=== PATIENT | female | born 1970 | race Caucasian/White ===

== ENCOUNTER → 2016-10-28 | Outpatient (CLI) | payer BC, MEDICARE ==
[~2016-10-28] MED LIST: ACET-76 PO; ADAL40KI INJ; AMIT50TA PO; CEFD300C37 PO; CHOL5000 PO; CITA40TA5 PO; FOLI0.8T2 PO; GABA100C PO; GABA300C10 PO; HYDR25TA11 PO; LINA145C PO; MELA1TAB15 PO; METH25VI9 INJ; OMEP40CA6 PO; PHEN37.53 PO; PRED10TA PO; TEMA30CA PO; TRAM200T17 PO; TRAM50TA2 PO
== END ==
LOC: STAR 13:09
PROVIDERS: ATTEND Thoracic Surgery (Cardiothoracic Vascular Surgery)
DX: Z02.9 Encounter for administrative examinations, unspecified (principal)

== ENCOUNTER 2016-11-04 05:56 | Observation (INO) | payer BC, MEDICARE ==
[~2016-11-04] VITALS: Ht 154.9 cm; Wt 93.3 kg
[2016-11-04] MEDS ORDERED: LACTATED RINGERS 1,000 ML IV SCH ×2 (06:29→10:21)
[2016-11-04 06:30] VITALS: BP 116/77
[2016-11-04] MEDS ORDERED: BUPIVACAINE/PF-EPI 0.5% 1:200K ONE (07:27)
[2016-11-04] MEDS ORDERED: FENTANYL PF 500 MCG/10ML ONE (09:12)
[2016-11-04] MEDS ORDERED: HYDROCORTISONE 100 MG INJ. ONE (09:18)
[2016-11-04] MEDS ORDERED: FENTANYL PF 100 MCG/2ML IV PRN (10:00)
[2016-11-04] MEDS ORDERED: PROMETHAZINE 25 MG/ML, 1ML IV PRN (10:00)
[2016-11-04] MEDS ORDERED: OXYcodone 5 MG/5 ML ORAL.SOL UDC PO PRN ×2 (10:00→10:30)
[2016-11-04] MEDS ORDERED: ONDANSETRON 2MG/ML, 2ML IVPush PRN ×2 (10:00→10:30)
[2016-11-04] MEDS ORDERED: MIDAZOLAM 1 MG/ML, 2ML IV PRN (10:00)
[2016-11-04] MEDS ORDERED: HYDROmorphone 1 MG/ML, 1ML IV PRN (10:00)
[2016-11-04] MEDS ORDERED: LABETALOL 5MG/ML, 20ML IV PRN (10:00)
[2016-11-04] MEDS ORDERED: MEPERIDINE/PF 25MG/0.5ML IVPush PRN (10:00)
[2016-11-04] MEDS ORDERED: KETOROLAC 30 MG/1 ML IV PRN (10:30)
[2016-11-04] MEDS ORDERED: DIPHENHYDRAMINE 50 MG/ML, 1ML IV PRN (10:30)
[2016-11-04] MEDS ORDERED: LORazepam 2 MG/ML, 1ML IV PRN (10:30)
[2016-11-04] MEDS ORDERED: FAMOTIDINE 20 MG/2 ML IV SCH ×2 (10:30→22:30)
[2016-11-04] MEDS ORDERED: CEFAZOLIN PMX 2GM/50ML 50 ML IVPB SCH (10:30)
[2016-11-04] MEDS ORDERED: hydrALAzine 20 MG/ML, 1ML IV PRN (10:30)
[2016-11-04] MEDS ORDERED: PROMETHAZINE 25 MG/ML, 1ML IM PRN (10:30)
[2016-11-04] MEDS ORDERED: morphine SULFATE 10 MG/ML, 1ML IV PRN (10:30)
[2016-11-04] MEDS ORDERED: ENALAPRILAT 1.25 MG/ML, 2ML IV PRN (10:30)
[2016-11-04] MEDS ORDERED: PROMETHAZINE 12.5 MG SUPP PR PRN (10:30)
[2016-11-04] MEDS ORDERED: OXYcodone 5 MG/5 ML ORAL.SOL UDC ONE (10:39)
[2016-11-04] MEDS ORDERED: GABAPENTIN 100 MG CAPSULE PO SCH (11:00)
[2016-11-04] MEDS ORDERED: METOCLOPRAMIDE 5 MG/ML, 2ML ONE (15:45)
[2016-11-04] MEDS ORDERED: NEOSTIGMINE 1 MG/ML, 10ML ONE (15:45)
[2016-11-04] MEDS ORDERED: ROCURONIUM 10 MG/ML ONE (15:45)
[2016-11-04] MEDS ORDERED: DEXAMETHASONE 4 MG/ML, 1ML ONE (15:45)
[2016-11-04] MEDS ORDERED: SUCCINYLCHOLINE 20 MG/ML, 10ML ONE (15:45)
[2016-11-04] MEDS ORDERED: PROPOFOL 10 MG/ML, 20ML ONE (15:45)
[2016-11-04] MEDS ORDERED: CEFAZOLIN 1,000 MG ONE (15:45)
[2016-11-04] MEDS ORDERED: KETOROLAC 30 MG/1 ML ONE (15:45)
[2016-11-04] MEDS ORDERED: GLYCOPYRROLATE 0.2MG/1ML ONE (15:45)
[2016-11-04] MEDS ORDERED: ONDANSETRON 2MG/ML, 2ML ONE (15:45)
[2016-11-04] MEDS ORDERED: GABAPENTIN 300 MG CAPSULE PO SCH (16:00)
[2016-11-05] MEDS ORDERED: ENOXAPARIN 40 MG/0.4 ML SQ SCH (09:00)
== END 2016-11-04 13:00 | disposition home or self-care (01) ==
LOC: OUT 05:56 → ORIP 10:21
PROVIDERS: ADMIT Thoracic Surgery (Cardiothoracic Vascular Surgery); ATTEND Thoracic Surgery (Cardiothoracic Vascular Surgery)
DX: K44.9 Diaphragmatic hernia without obstruction or gangrene (principal); K21.0 Gastro-esophageal reflux disease with esophagitis; E66.3 Overweight
CPT/HCPCS: 43282; G0378; J0330; J0690; J1100; J1720; J1885; J2405; J2704; J2710; J2765; J3010; J7120; J3490